=== PATIENT | male | born 1995 | race American Indian/Alaskan Native ===

== ENCOUNTER 2020-04-12 08:37 | Emergency (ER) | payer SELFPAY ==
[2020-04-12 08:44] VITALS: BP 109/67
[2020-04-12] MEDS ORDERED: IBUPROFEN 600 MG TAB PO ONE (12:01)
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
== END 2020-04-12 13:33 | disposition home or self-care (01) ==
LOC: ED 08:37
DX: S16.1XXA Strain of muscle, fascia and tendon at neck level, initial encounter (principal); S29.012A Strain of muscle and tendon of back wall of thorax, initial encounter; M25.562 Pain in left knee; V89.2XXA Person injured in unspecified motor-vehicle accident, traffic, initial encounter; Y93.89 Activity, other specified; Y92.410 Unspecified street and highway as the place of occurrence of the external cause; Y99.8 Other external cause status
CPT/HCPCS: 72040; 72072

== ENCOUNTER 2020-05-24 17:40 | Emergency (ER) | payer OTHER | END 2020-05-25 03:00 | disposition left against medical advice (07) | LOC: ED 17:40 | DX: M54.2 Cervicalgia (principal); Z53.21 Procedure and treatment not carried out due to patient leaving prior to being seen by health care provider ==

== ENCOUNTER 2021-01-03 03:26 | Emergency (ER) | payer SELFPAY ==
[2021-01-03 03:41] VITALS: BP 124/64
--- NOTE | 2021-01-03 07:12 | Emergency Department Report ---
<MIKE MATTHEWS - Last Filed: 01/03/21 07:08> ED General Adult HPI - General Chief complaint: Anxiety Stated complaint: POSS CHEST PAINS Source: patient Mode of arrival: Ambulatory Limitations: No Limitations - History of Present Illness Initial comments: Patient is a 25-year-old -[place] male with no past medical history presents to the ED with complaint of acute onset persistent bilateral upper and lower extremity muscle spasm for the last 4 hours. Patient states that he was unable to perform any active range of motion of the upper and lower extremities because of muscle spasm. Patient states that prior to the onset of the symptoms, he was resting in his bed watching television and suddenly he started having the symptoms with palpitations of his heart. Patient denies dizziness, syncope, chest pain, shortness of breath, abdominal pain, nausea, vomiting, diarrhea, traumatic injury, heavy lifting, strenuous physical activities, heada asvita, numbness and tingling or weakness of upper and lower extremities bilaterally. MD Complaint: Body aches, muscle spasm of upper and lower extremities -: Sudden, hour(s) (4) Location: upper extremity, lower extremity Radiation: non-radiation Severity scale (0 -10): 7 Quality: aching, sharp Consistency: constant Improves with: none Worsens with: movement Associated Symptoms: denies other symptoms. denies: confusion, chest pain, cough, diaphoresis, fever/chills, headaches, loss of appetite, malaise, nausea/vomiting, rash, shortness of breath, syncope Treatments Prior to Arrival: none - Related Data Previous Rx's Medication Instructions Recorded Last Taken Type Naproxen [EC-Naprosyn] 500 mg PO BID PRN #14 tablet. 04/12/20 Unknown Rx Allergies Allergy/AdvReac Type Severity Reaction Status Date / Time shellfish derived AdvReac Anaphylaxis Verified 01/03/21 03:41 ED Review of Systems Constitutional: denies: chills, fever Eyes: denies: eye pain, eye discharge, vision change ENT: denies: ear pain, throat pain Respiratory: denies: cough, shortness of breath, wheezing Cardiovascular: denies: chest pain, palpitations Endocrine: no symptoms reported Gastrointestinal: denies: abdominal pain, nausea, vomiting, diarrhea Genitourinary: denies: urgency, dysuria Musculoskeletal: arthralgia (Muscle spasm of upper and lower extremities bilaterally), myalgia. denies: back pain, joint swelling Skin: denies: rash, lesions Neurological: denies: headache, weakness, paresthesias Psychiatric: denies: anxiety, depression Hematological/Lymphatic: denies: easy bleeding, easy bruising ED Past Medical Hx - Surgical History Additional Surgical History: right eye - Social History Smoking Status: Current Every Day Smoker - Medications Home Medications: Home Medications Medication Instructions Recorded Confirmed Last Taken Type Naproxen [EC-Naprosyn] 500 mg PO BID PRN #14 tablet. 04/12/20 Unknown Rx ED Physical Exam - General Limitations: No Limitations General appearance: alert, in no apparent distress - Head Head exam: Present: atraumatic, normocephalic, normal inspection - Eye Eye exam: Present: normal appearance, PERRL, EOMI Pupils: Present: normal accommodation - ENT ENT exam: Present: normal exam, normal orophraynx, mucous membranes moist, TM's normal bilaterally, normal external ear exam - Neck Neck exam: Present: normal inspection, full ROM - Respiratory Respiratory exam: Present: normal lung sounds bilaterally. Absent: respiratory distress, wheezes, rales, rhonchi, stridor, chest wall tenderness, accessory muscle use, decreased breath sounds - Cardiovascular Cardiovascular Exam: Present: regular rate, normal rhythm, normal heart sounds. Absent: systolic murmur, diastolic murmur, rubs, gallop - GI/Abdominal GI/Abdominal exam: Present: soft, normal bowel sounds. Absent: tenderness, hyperactive bowel sounds, hypoactive bowel sounds, mass - Extremities Exam Extremities exam: Present: normal inspection, full ROM, normal capillary refill. Absent: tenderness - Back Exam Back exam: Present: normal inspection. Absent: tenderness, CVA tenderness (R), CVA tenderness (L), muscle spasm, paraspinal tenderness, vertebral tenderness - Neurological Exam Neurological exam: Present: alert, oriented X3, CN II-XII intact, normal gait, reflexes normal - Psychiatric Psychiatric exam: Present: normal affect, normal mood, anxious - Skin Skin exam: Present: warm, dry, intact, normal color. Absent: rash ED Medical Decision Making - Medical Decision Making This is a 25-year-old -[place] male with no past medical history presents to the ED with complaint of acute onset persistent bilateral upper and lower extremity muscle spasm for the last 4 hours. Patient states that he was unable to perform any active range of motion of the upper and lower extremities because of muscle spasm. Patient states that prior to the onset of the symptoms, he was resting in his bed watching television and suddenly he started having the symptoms with palpitations of his heart. In the ED, patient is alert and oriented x3 and is not in any distress. Labs were drawn and are currently pending as at shift change. Patient care was transferred to Ms. Lizz Muir PA-C at shift change who shall review all lab test results and disposition the patient accordingly. - Differential Diagnosis Muscle spasm; muscle strain; anxiety; rhabdomyolysis; hypocalcemia ED Disposition Clinical Impression: Muscle spasm of both lower legs Muscle strain of upper extremity Qualifiers: Encounter type: initial encounter Laterality: unspecified laterality Qualified Code(s): S46.919A - Strain of unspecified muscle, fascia and tendon at shoulder and upper arm level, unspecified arm, initial encounter Disposition: DC-01 TO HOME OR SELFCARE Is pt being admited?: No Does the pt Need Aspirin: No Condition: Stable <LIZZ MUIR - Last Filed: 01/03/21 08:19> ED Review of Systems ROS: Stated complaint: POSS CHEST PAINS Other details as noted in HPI ED Course Vital Signs 01/03/21 03:40 Temperature 98.2 F Pulse Rate 71 Respiratory 16 Rate Blood Pressure 124/64 O2 Sat by Pulse 98 Oximetry ED Medical Decision Making - Lab Data Result diagrams: 01/03/21 05:15 01/03/21 05:15 - Medical Decision Making Care of patient transferred by Mike Matthews PA-C at change of shift pending lab results. On reevaluation, patient is stable. He is resting comfortably. No acute distress. No muscle spasm noted. Labs show minimally elevated CPK, otherwise unremarkable. No clinical indication for further diagnostic work-up on an emergent basis at this time. Patient will be discharged home to follow-up with primary care provider this week. Encouraged patient to rest and remain well-hydrated. Patient expressed understanding and is agreeable to plan of care. Strict return precautions provided. Repeat exam is unremarkable and benign. History, exam, diagnostic testing, and current condition do not suggest worrisome pathology to warrant further testing, continued ED treatment, admission, or surgical evaluation at this point. Given the low probability of a significant medical illness, it would be more likely to result in harm than benefit to perform further testing at this stage. Discussed findings, presumptive diagnosis, need for follow-up and specific signs/symptoms that should prompt immediate return to the emergency department. Instructions were explained in detail to the patient in addition to giving written discharge information. Patient expressed understanding and was given the opportunity to ask questions, all of which were satisfactorily answered prior to discharge home. Critical care attestation.: If time is entered above; I have spent that time in minutes in the direct care of this critically ill patient, excluding procedure time. ED Disposition Is pt being admited?: No Does the pt Need Aspirin: No Time of Disposition: 08:18
[2021-01-03 07:47] LABS: Basophils % (Auto) 0.4 % (0.0-1.8); Eosinophils % (Auto) 0.3 % (0.0-4.3); Hematocrit 41.5 % (35.5-45.6); Lymphocytes # (Auto) 2.3 K/mm3 (1.2-5.4); Mean Corpuscular HGB Conc 34 % (32-34); Mean Corpuscular Volume 93 fl (84-94); Monocytes # (Auto) 0.7 K/mm3 (0.0-0.8); Monocytes % (Auto) 7.3 % (0.0-7.3); Platelet Count 226 K/mm3 (140-440); Red Blood Count 4.49 M/mm3 (3.65-5.03); Red Cell Distribution Width 12.9 % (13.2-15.2)
[2021-01-03 08:08] LABS: Alanine Aminotransferase 10 units/L (7-56); Albumin 4.6 g/dL (3.9-5); Blood Urea Nitrogen 8 mg/dL (9-20); Calcium 9.9 mg/dL (8.4-10.2); Hemolysis Index 4
[2021-01-03 08:11] LABS: BUN/Creatinine Ratio 11
== END 2021-01-03 08:20 | disposition home or self-care (01) ==
LOC: ED 03:26
DX: S46.812A Strain of other muscles, fascia and tendons at shoulder and upper arm level, left arm, initial encounter (principal); S46.811A Strain of other muscles, fascia and tendons at shoulder and upper arm level, right arm, initial encounter; M62.838 Other muscle spasm; M79.604 Pain in right leg; M79.605 Pain in left leg; R00.2 Palpitations; F17.200 Nicotine dependence, unspecified, uncomplicated; X58.XXXA Exposure to other specified factors, initial encounter; Y93.89 Activity, other specified; Y92.89 Other specified places as the place of occurrence of the external cause; Y99.8 Other external cause status
CPT/HCPCS: 36415; 80053; 82550; 84484; 85025; 99283

== ENCOUNTER 2021-06-11 23:26 | Emergency (ER) | payer SELFPAY ==
[2021-06-12 00:57] VITALS: BP 114/73
--- NOTE | 2021-06-12 01:34 | Emergency Department Report ---
ED Male HPI - General Chief complaint: Medical Clearance Stated complaint: STD CHECK Time Seen by Provider: 06/12/21 01:18 Source: patient Mode of arrival: Ambulatory Limitations: No Limitations - History of Present Illness Initial comments: 25-year-old [place] male presents emerge department complaining of post void stinky with a suspicion of an STD after having unprotected sex with a and frequent friend. To his knowledge he Zev is asymptomatic and denies any symptoms but he wanted to be checked for STDs to be sure he did not have any a infection MD Complaint: dysuria -: Gradual Radiation: none Severity: mild Consistency: constant Improves with: none Worsens with: none denies: discharge, swelling, blood in urine - Related Data Previous Rx's Medication Instructions Recorded Last Taken Type Naproxen [EC-Naprosyn] 500 mg PO BID PRN #14 tablet. 04/12/20 Unknown Rx Azithromycin [Zithromax TAB] 1,000 mg PO ONCE #2 tablet 06/12/21 Unknown Rx DOXYCYCLINE Hyclate [Vibramycin 100 mg PO BID #20 capsule 06/12/21 Unknown Rx CAP] cefTRIAXone [Rocephin] 500 mg IM ONCE #1 vial 06/12/21 Unknown Rx metroNIDAZOLE [Flagyl] 2,000 mg PO ONCE #4 tablet 06/12/21 Unknown Rx Allergies Allergy/AdvReac Type Severity Reaction Status Date / Time shellfish derived AdvReac Anaphylaxis Verified 06/12/21 00:57 ED Review of Systems ROS: Stated complaint: STD CHECK Other details as noted in HPI Comment: All other systems reviewed and negative ED Past Medical Hx - Surgical History Additional Surgical History: right eye - Social History Smoking Status: Current Every Day Smoker - Medications Home Medications: Home Medications Medication Instructions Recorded Confirmed Last Taken Type Naproxen [EC-Naprosyn] 500 mg PO BID PRN #14 tablet. 04/12/20 Unknown Rx Azithromycin [Zithromax TAB] 1,000 mg PO ONCE #2 tablet 06/12/21 Unknown Rx DOXYCYCLINE Hyclate [Vibramycin 100 mg PO BID #20 capsule 06/12/21 Unknown Rx CAP] cefTRIAXone [Rocephin] 500 mg IM ONCE #1 vial 06/12/21 Unknown Rx metroNIDAZOLE [Flagyl] 2,000 mg PO ONCE #4 tablet 06/12/21 Unknown Rx ED Physical Exam - General Limitations: No Limitations General appearance: alert, in no apparent distress - Head Head exam: Present: atraumatic, normocephalic - Eye Eye exam: Present: normal appearance, PERRL, EOMI - ENT ENT exam: Present: normal exam, normal orophraynx, mucous membranes moist - Neck Neck exam: Present: normal inspection, full ROM - Respiratory Respiratory exam: Present: normal lung sounds bilaterally. Absent: respiratory distress, wheezes, rales, chest wall tenderness, accessory muscle use - Cardiovascular Cardiovascular Exam: Present: regular rate, normal rhythm. Absent: systolic murmur, diastolic murmur, rubs, gallop - GI/Abdominal GI/Abdominal exam: Present: soft, normal bowel sounds. Absent: distended, guarding, hyperactive bowel sounds, hypoactive bowel sounds, organomegaly, mass - Rectal Rectal exam: Present: deferred - Extremities Exam Extremities exam: Present: normal inspection, full ROM, normal capillary refill - Back Exam Back exam: Present: normal inspection. Absent: CVA tenderness (R), CVA tenderness (L), muscle spasm, paraspinal tenderness - Neurological Exam Neurological exam: Present: alert, oriented X3, CN II-XII intact, normal gait - Psychiatric Psychiatric exam: Present: normal affect, normal mood. Absent: flat affect, manic - Skin Skin exam: Present: warm, dry, intact, normal color. Absent: rash, cyanosis, diaphoretic, erythema, urticaria, petechiae, pallor, abrasion ED Course Vital Signs 06/12/21 00:56 Temperature 98 F Pulse Rate 69 Respiratory 18 Rate Blood Pressure 114/73 [Right] O2 Sat by Pulse 100 Oximetry Critical care attestation.: If time is entered above; I have spent that time in minutes in the direct care of this critically ill patient, excluding procedure time. ED Disposition Clinical Impression: Possible exposure to STD Disposition: 01 HOME / SELF CARE / HOMELESS Is pt being admited?: No Does the pt Need Aspirin: No Condition: Stable Instructions: Safe Sex Prescriptions: metroNIDAZOLE [Flagyl] 2,000 mg PO ONCE #4 tablet cefTRIAXone [Rocephin] 500 mg IM ONCE #1 vial DOXYCYCLINE Hyclate [Vibramycin CAP] 100 mg PO BID #20 capsule Azithromycin [Zithromax TAB] 1,000 mg PO ONCE #2 tablet Referrals: [facility] [Outside] - 3-5 Days
[2021-06-12] MEDS ORDERED: LIDOCAINE-MPF (1%) 10 MG/1 ML VIAL 5 ML INFILTRATI ONE (01:46)
== END 2021-06-12 02:50 | disposition home or self-care (01) ==
LOC: ED 23:26
DX: Z20.2 Contact with and (suspected) exposure to infections with a predominantly sexual mode of transmission (principal); F17.290 Nicotine dependence, other tobacco product, uncomplicated; Z98.890 Other specified postprocedural states; Z91.013 Allergy to seafood; Z79.899 Other long term (current) drug therapy
CPT/HCPCS: 96372; 99281; J0696; J3490

== ENCOUNTER 2021-11-14 14:48 | Emergency (ER) | payer SELFPAY ==
[2021-11-14 16:40] VITALS: BP 132/65
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
== END 2021-11-14 17:10 | disposition home or self-care (01) ==
LOC: ED 14:48
DX: Z00.00 Encounter for general adult medical examination without abnormal findings (principal); F17.200 Nicotine dependence, unspecified, uncomplicated; Z91.013 Allergy to seafood
CPT/HCPCS: 99282